=== PATIENT | female | born 1940 | race Caucasian/White ===

== ENCOUNTER → 2016-08-21 | Outpatient (CLI) | payer MEDICARE, OTHER ==
[~2016-08-21] MED LIST: ALPRAZOLAM0.5 MG PO; CALCIUM; CYMBALTA60 MG PO; ESSENTIAL DAIL1 EACH PO; FOSAMAX70 MG PO; LOVASTATIN40 MG PO; NORCO 5-325 TA1 EACH PO; NORVASC 5 MG TAB5 MG PO; PEPCID AC10 MG PO; REMERON 15 MG T15 MG PO; TOPROL XL50 MG PO; VITAMIN B-1000 MCG/M IM; VITAMIN D; VITAMIN E; VOLTAREN EC 5050 MG PO
== END ==
LOC: CT 14:52
DX: G25.0 Essential tremor (principal); R90.89 Other abnormal findings on diagnostic imaging of central nervous system
CPT/HCPCS: 70450

== ENCOUNTER 2021-03-21 13:19 | Inpatient (IN) | payer MEDICARE, OTHER ==
[~2021-03-21] VITALS: Ht 165.1 cm; Wt 59.9 kg
[~2021-03-21 13:19] MED LIST changes: +ARICEPT10 MG PO; +BENADRYL 25MG C25 MG PO; +BUPROPION HCL75 MG PO; +CALCIUM 600 +1 EAC3 PO; +FLOVENT DISKUS50 MCG INH; +FORTEO 250250 MCG/ML SC; +INDERAL TAB 2020 MG PO; +K-DUR TAB 20 M20 MEQ PO; +KLONOPIN1 MG PO; +LEVOTHYROXINE50 MCG PO; +LIORESAL TAB 1010 MG PO; +OMEPRAZOLE20 M1 PO; +OMNICEF 300 MG300 MG PO; +TRAMADOL HCL50 MG PO; +ULTRAM50 MG PO; +VITAMIN C500 M1 PO; +VITAMIN D31000 UNI1 PO
[2021-03-21 14:57] LABS: HEMOGLOBIN 12.7 gm/dl (12.3-15.3); RED BLOOD COUNT 3.94 M/UL (4.00-5.10); WHITE BLOOD COUNT 6.4 K/UL (4.5-11.0)
[2021-03-21 15:23] LABS: BUN/CREATININE RATIO 20 (0-10)
[2021-03-22] MEDS ORDERED: WELLBUTRIN 75 M75 MG PO (02:18)
[2021-03-22] MEDS ORDERED: INDERAL TAB 2020 MG PO (02:19)
[2021-03-22] MEDS ORDERED: MYRBETRIQ25 MG PO (02:19)
[2021-03-22 06:07] LABS: HEMOGLOBIN 14.2 gm/dl (12.3-15.3)
[2021-03-22 06:24] LABS: RED BLOOD COUNT 4.41 M/UL (4.00-5.10); WHITE BLOOD COUNT 8.8 K/UL (4.5-11.0)
[2021-03-23 03:31] LABS: RED BLOOD COUNT 4.63 M/UL (4.00-5.10); WHITE BLOOD COUNT 9.8 K/UL (4.5-11.0)
--- NOTE | 2021-03-23 06:29 | NUR ---
PATIENT ONLY ORIENTED TO SELF. SEVERAL ATTEMPTS TO GET OUT OF THE BED WITHOUT ASSISTANCE OVERNIGHT. PATIENT DID NOT SLEEP TONIGHT.
[2021-03-23] MEDS ORDERED: REXULTI0.5 MG PO (20:59)
[2021-03-24 03:46] LABS: HEMOGLOBIN 14.7 gm/dl (12.3-15.3); RED BLOOD COUNT 4.63 M/UL (4.00-5.10); WHITE BLOOD COUNT 8.3 K/UL (4.5-11.0)
[2021-03-27 09:38] LABS: HEMOGLOBIN 14.1 gm/dl (12.3-15.3); RED BLOOD COUNT 4.38 M/UL (4.00-5.10); WHITE BLOOD COUNT 7.6 K/UL (4.5-11.0)
[2021-03-27 10:09] LABS: BUN/CREATININE RATIO 41 (0-10)
[2021-03-27] MEDS ORDERED: KLONOPIN1 MG PO (10:33)
== END 2021-03-27 15:08 | DRG 689 ==
LOC: ER1 13:19 → MED SURG 4 15:54 → CDU 15:54 → MED SURG 4 03-22 01:20
PROVIDERS: Emergency Medicine; Physician Assistant Medical; ADMIT Internal Medicine
DX: N30.00 Acute cystitis without hematuria (principal); G93.41 Metabolic encephalopathy; Z20.822 Contact with and (suspected) exposure to COVID-19; F03.90 Unspecified dementia, unspecified severity, without behavioral disturbance, psychotic disturbance, mood disturbance, and anxiety; E03.9 Hypothyroidism, unspecified; I10 Essential (primary) hypertension; Z79.899 Other long term (current) drug therapy
CPT/HCPCS: 36415; 70450; 71045; 80048; 80307; 81001; 82550; 82553; 83605; 83735; 83874; 84484; 85025; 85027; 87040; 87077; 87086; 87186; 96372; 96374; 96375; 96376; 97110-GP-CQ; 97162; 97167; 97530-GP-CQ; 99285; G0378; J0360; J0696; J1650; U0002

== ENCOUNTER 2021-05-28 05:29 | Inpatient (IN) | payer MEDICARE, OTHER ==
[~2021-05-28] VITALS: Ht 165.1 cm; Wt 72.6 kg
[~2021-05-28 05:29] MED LIST changes: -ABILIFY2 MG PO; -ACETAMINOPHEN500 MG PO; -CHRONULAC20 GM/30 M PO; -DESITIN CREAM 660 GM TOP; -GENTLE LAXATIVE10 MG PR; -KLONOPIN0.5 MG PO; -MEGACE 400400 MG/10 PO; -SODIUM CHLORIDE15 ML INH; -SODIUM CL 0.91000 ML IV
[2021-05-28 07:22] LABS: HEMOGLOBIN 14.4 gm/dl (12.3-15.3); RED BLOOD COUNT 4.65 M/UL (4.00-5.10); WHITE BLOOD COUNT 14.3 K/UL (4.5-11.0)
[2021-05-28 07:34] LABS: BUN/CREATININE RATIO 43 (0-10)
[2021-05-28] MEDS ORDERED: KLONOPIN0.5 MG PO (14:14)
[2021-05-28] MEDS ORDERED: CHRONULAC20 GM/30 M PO (14:17)
[2021-05-28] MEDS ORDERED: DESITIN CREAM 660 GM TOP (14:19)
[2021-05-28] MEDS ORDERED: ACETAMINOPHEN500 MG PO (14:20)
[2021-05-28] MEDS ORDERED: MEGACE 400400 MG/10 PO (15:11)
[2021-05-28] MEDS ORDERED: GENTLE LAXATIVE10 MG PR (15:12)
[2021-05-28] MEDS ORDERED: ABILIFY2 MG PO (15:13)
[2021-05-28] MEDS ORDERED: SODIUM CHLORIDE15 ML INH (15:28)
[2021-05-28] MEDS ORDERED: SODIUM CL 0.91000 ML IV (15:31)
[2021-05-29 03:57] LABS: HEMOGLOBIN 12.8 gm/dl (12.3-15.3); RED BLOOD COUNT 4.23 M/UL (4.00-5.10)
[2021-05-29 03:59] LABS: WHITE BLOOD COUNT 18.8 K/UL (4.5-11.0)
[2021-05-29 04:10] LABS: BUN/CREATININE RATIO 41 (0-10)
[2021-05-29 08:07] LABS: ACINETOBACTER BAUMANNII Not Detected (Negative); CANDIDA ALBICANS Not Detected (Negative); CANDIDA KRUSEI Not Detected (Negative); CANDIDA TROPICALIS Not Detected (Negative); ENTEROCOCCUS Not Detected (Negative); ESCHERICHIA COLI Not Detected (Negative); HAEMOPHILUS INFLUENZAE Not Detected (Negative); KLEBSIELLA OXYTOCA Not Detected (Negative); KLEBSIELLA PNEUMONIAE Not Detected (Negative); KPC-CARBAPENEM-RESISTANCE GENE Not Detected (Negative); PROTEUS Not Detected (Negative); PSEUDOMONAS AERUGINOSA Not Detected (Negative); SERRATIA MARCESANS Not Detected (Negative); STAPHYLOCOCCUS AUREUS Not Detected (Negative); STREP AGALACTIAE (GROUP B) Not Detected (Negative); STREP PYOGENES (GROUP A) Not Detected (Negative); STREPTOCOCCUS Not Detected (Negative); mecA (METHICILLIN RESIST GENE Not Detected (Negative); vanA/B (VANCOMYCIN RESIST GENE Not Detected (Negative)
[2021-05-29 09:25] LABS: STAPHYLOCOCCUS DETECTED (Negative)
[2021-05-30 08:18] LABS: BUN/CREATININE RATIO 34 (0-10)
[2021-05-30 09:06] LABS: HEMOGLOBIN 11.7 gm/dl (12.3-15.3); RED BLOOD COUNT 3.76 M/UL (4.00-5.10); WHITE BLOOD COUNT 13.3 K/UL (4.5-11.0)
[2021-05-31 04:03] LABS: BUN/CREATININE RATIO 29 (0-10)
[2021-06-01 03:42] LABS: HEMOGLOBIN 12.8 gm/dl (12.3-15.3); RED BLOOD COUNT 4.1 M/UL (4.00-5.10); WHITE BLOOD COUNT 12.9 K/UL (4.5-11.0)
[2021-06-01 03:53] LABS: BUN/CREATININE RATIO 24 (0-10)
[2021-06-02 09:15] LABS: HEMOGLOBIN 14.1 gm/dl (12.3-15.3); RED BLOOD COUNT 4.48 M/UL (4.00-5.10)
[2021-06-02 09:17] LABS: WHITE BLOOD COUNT 25.5 K/UL (4.5-11.0)
[2021-06-03 09:05] LABS: WHITE BLOOD COUNT 25.9 K/UL (4.5-11.0)
[2021-06-03 09:09] LABS: HEMOGLOBIN 11.5 gm/dl (12.3-15.3); RED BLOOD COUNT 3.76 M/UL (4.00-5.10)
[2021-06-04 05:14] LABS: RED BLOOD COUNT 3.52 M/UL (4.00-5.10)
[2021-06-04 05:17] LABS: WHITE BLOOD COUNT 30.7 K/UL (4.5-11.0)
[2021-06-05 04:40] LABS: HEMOGLOBIN 10.5 gm/dl (12.3-15.3); RED BLOOD COUNT 3.37 M/UL (4.00-5.10); WHITE BLOOD COUNT 22.7 K/UL (4.5-11.0)
[2021-06-06 03:16] LABS: BUN/CREATININE RATIO 16 (0-10)
[2021-06-06 07:26] LABS: HEMOGLOBIN 10.4 gm/dl (12.3-15.3); RED BLOOD COUNT 3.38 M/UL (4.00-5.10); WHITE BLOOD COUNT 21.9 K/UL (4.5-11.0)
--- NOTE | 2021-06-06 16:40 | NUR ---
AT APPROX 1600 PT O2 SAT DECREASED TO 76% ON 100%BIPAP FIO2, RESP LABORED. SPOKE WITH PATIENTS SON WHO STATED TO MYSELF AND KIMBERLY SANTIAGO RN THAT THE FAMILY WANTED COMFORT MEASURES AT THIS TIME. MD NOTIFIED AND COMFORT MEASURES INITIATED.
== END 2021-06-06 18:00 | disposition expired | DRG 871 ==
LOC: ER1 05:29 → PROG CARE 08:56 → MED SURG 4 08:56 → CDU 08:56 → MED SURG 4 15:45 → PROG CARE 05-30 13:42
PROVIDERS: Internal Medicine; Nurse Practitioner; Physician Assistant; Physician Assistant Medical; ADMIT Internal Medicine Infectious Disease
PROC: 3E03329 Introduction of Other Anti-infective into Peripheral Vein, Percutaneous Approach (ICD-10-PCS; principal; 2021-05-29)
PROC: 0DH63UZ Insertion of Feeding Device into Stomach, Percutaneous Approach (ICD-10-PCS; 2021-05-31)
PROC: 3E0G36Z Introduction of Nutritional Substance into Upper GI, Percutaneous Approach (ICD-10-PCS; 2021-05-31)
PROC: B24BZZZ Ultrasonography of Heart with Aorta (ICD-10-PCS; 2021-05-31)
PROC: 5A0945A Assistance with Respiratory Ventilation, 24-96 Consecutive Hours, High Flow/Velocity Cannula (ICD-10-PCS; 2021-06-04)
PROC: 5A09357 Assistance with Respiratory Ventilation, Less than 24 Consecutive Hours, Continuous Positive Airway Pressure (ICD-10-PCS; 2021-06-06)
DX: A41.9 Sepsis, unspecified organism (principal); J69.0 Pneumonitis due to inhalation of food and vomit; J96.01 Acute respiratory failure with hypoxia; G92.8 Other toxic encephalopathy; N17.9 Acute kidney failure, unspecified; K92.2 Gastrointestinal hemorrhage, unspecified; E87.0 Hyperosmolality and hypernatremia; E87.1 Hypo-osmolality and hyponatremia; K56.49 Other impaction of intestine; I48.20 Chronic atrial fibrillation, unspecified; R65.20 Severe sepsis without septic shock; I10 Essential (primary) hypertension; Z66 Do not resuscitate; E87.6 Hypokalemia; Z20.822 Contact with and (suspected) exposure to COVID-19; F03.90 Unspecified dementia, unspecified severity, without behavioral disturbance, psychotic disturbance, mood disturbance, and anxiety; E03.9 Hypothyroidism, unspecified; R53.81 Other malaise; R62.7 Adult failure to thrive; D64.9 Anemia, unspecified; Z79.899 Other long term (current) drug therapy; K59.00 Constipation, unspecified; Z51.5 Encounter for palliative care; Z79.01 Long term (current) use of anticoagulants
CPT/HCPCS: ECHO; 36415; 36600; 71045; 71250; 74018; 80048; 80053; 80162; 80202; 81001; 82140; 82550; 82553; 82800; 82803; 83605; 83735; 83880; 84100; 84132; 84439; 84443; 84484; 85025; 85027; 85652; 86140; 87040; 87077; 87086; 87150; 87186; 93005; 93306; 94640; 94660; 94664; 94760; 96374; 99285; C9113; J1160; J1335; J1650; J2543; J3370; J3475; J3480; J7030; J7060; J7070; U0002

== ENCOUNTER → 2021-05-28 | Outpatient (CLI) | payer MEDICARE, OTHER ==
[~2021-05-28] MED LIST changes: +ABILIFY2 MG PO; +ACETAMINOPHEN500 MG PO; +CHRONULAC20 GM/30 M PO; +DESITIN CREAM 660 GM TOP; +GENTLE LAXATIVE10 MG PR; +KLONOPIN0.5 MG PO; +MEGACE 400400 MG/10 PO; +MYRBETRIQ25 MG PO; +REXULTI0.5 MG PO; +SODIUM CHLORIDE15 ML INH; +SODIUM CL 0.91000 ML IV; +WELLBUTRIN 75 M75 MG PO
[2021-05-28 01:45] LABS: HEMOGLOBIN 12.9 gm/dl (12.3-15.3); RED BLOOD COUNT 4.24 M/UL (4.00-5.10); WHITE BLOOD COUNT 13.1 K/UL (4.5-11.0)
[2021-05-28 02:10] LABS: BUN/CREATININE RATIO 43 (0-10)
== END ==
LOC: LAB 01:34
PROVIDERS: Emergency Medicine
DX: U07.1 COVID-19 (principal)
CPT/HCPCS: 80053; 85027